=== PATIENT | female | born 1990 | race Caucasian/White ===

== ENCOUNTER 2021-06-10 22:07 | Inpatient (IN) | payer BC ==
[~2021-06-10] VITALS: Ht 162.6 cm; Wt 78.6 kg
[2021-06-10] MEDS ORDERED: LIDOCAINE 1%, 20ML ONE (22:47)
[2021-06-10] MEDS ORDERED: MISOPROSTOL 200 MCG TABLET ONE (22:47)
[2021-06-10] MEDS ORDERED: NEWBORN KIT ONE (22:47)
[2021-06-10] MEDS ORDERED: OXYTOCIN 30U/ 0.9% NaCL 500ML 500 ML ONE (22:47)
[2021-06-10] MEDS ORDERED: FENTANYL PF 100 MCG/2ML IVPush PRN (23:00)
[2021-06-10] MEDS ORDERED: PENICILLIN GK 5,000,000 UNITS in DEXTROSE 5% 100 ML IVPB ONE (23:00)
[2021-06-10] MEDS ORDERED: FENTANYL PF 100 MCG/2ML IV PRN (23:00)
[2021-06-10] MEDS: PENICILLIN GK 2,500,000 UNITS in DEXTROSE 5% 100 ML IVPB SCH (23:00)
[2021-06-10] MEDS ORDERED: ONDANSETRON 2MG/ML, 2ML IVPush PRN (23:00)
[2021-06-10] MEDS ORDERED: TERBUTALINE 1 MG/ML, 1ML SQ PRN (23:00)
[2021-06-10] MEDS ORDERED: OXYTOCIN 30U/ 0.9% NaCL 500ML 500 ML IV ONE (23:00)
[2021-06-10] MEDS ORDERED: TERBUTALINE 1 MG/ML, 1ML IVPush PRN (23:00)
[2021-06-10 23:19] LABS: BASOPHILS % (AUTO) 0 % (0-1); EOSINOPHILS % (AUTO) 1 % (1-7); LYMPHOCYTES % (AUTO) 23 % (22-44); MEAN CORPUSCULAR HEMOGLOBIN 32.4 pg (27.0-34.8); MEAN CORPUSCULAR HGB CONC 34.8 g/dL (32.4-35.8); MEAN PLATELET VOLUME 9.7 fL (7.4-10.4); MONOCYTES % (AUTO) 9 % (2-9); NEUTROPHILS % (AUTO) 68 % (42-75); PLATELET COUNT 152 x10^3/uL (130-400); RED CELL DISTRIBUTION WIDTH 13.1 % (9.6-15.2)
[2021-06-10] MEDS ORDERED: PREN1TAB79 PO (23:26)
[2021-06-10 23:29] VITALS: BP 128/83
[2021-06-11] MEDS ORDERED: OXYTOCIN 30U/ 0.9% NaCL 500ML 500 ML IV PRN (00:30)
[2021-06-11] MEDS: PENICILLIN GK 2,500,000 UNITS in DEXTROSE 5% 100 ML IVPB SCH ×2 (06:11→09:54)
[2021-06-11] MEDS ORDERED: BUPIVACAINE 0.25% ONE (06:26)
[2021-06-11] MEDS ORDERED: FENTANYL/BUPIV./NS/PF 250 ML EPIDCONT ONE (06:26)
[2021-06-11] MEDS ORDERED: NALOXONE 0.4 MG/ML, 1ML IVPush PRN (07:00)
[2021-06-11] MEDS ORDERED: EPHEDRINE 50 MG/ML, 1ML IVPush PRN (07:00)
[2021-06-11] MEDS ORDERED: LACTATED RINGERS 1,000 ML IVBOLUS PRN (07:00)
[2021-06-11] MEDS ORDERED: ONDANSETRON 2MG/ML, 2ML IVPush PRN (07:00)
[2021-06-11] MEDS ORDERED: LACTATED RINGERS 1,000 ML IV SCH (07:00)
[2021-06-11] MEDS ORDERED: DIPHENHYDRAMINE 50 MG/ML, 1ML IVPush PRN (07:00)
[2021-06-11] MEDS ORDERED: FENTANYL/BUPIV./NS/PF 250 ML EPIDCONT SCH (07:00)
[2021-06-11] MEDS ORDERED: BETAMETHASONE 6 MG/ML, 5ML IM ONE (07:30)
[2021-06-11] MEDS ORDERED: DIPH,PERTUSS(ACELL),TET VAC/PF NC IM-VACC ONE (11:42)
[2021-06-11] MEDS ORDERED: SIMETHICONE 80 MG CHEW TAB PO PRN (13:00)
[2021-06-11] MEDS ORDERED: ONDANSETRON 2MG/ML, 2ML IV PRN (13:00)
[2021-06-11] MEDS ORDERED: OXYcodone IR 5MG TABLET PO PRN (13:00)
[2021-06-11] MEDS ORDERED: OXYcodone/APAP 5/325MG TABLET PO PRN (13:00)
[2021-06-11] MEDS ORDERED: ACETAMINOPHEN 325 MG TABLET PO PRN (13:00)
[2021-06-11] MEDS: OXYTOCIN 30U/ 0.9% NaCL 500ML 500 ML IV SCH ×2 (13:00→23:00)
[2021-06-11] MEDS ORDERED: MISOPROSTOL 200 MCG TABLET PR PRN (13:00)
[2021-06-11 15:45] VITALS: BP 125/76
[2021-06-11] MEDS: IBUPROFEN 600 MG TABLET PO PRN (18:02)
[2021-06-11 19:05] VITALS: BP 112/63
[2021-06-11 21:49] LABS: BASOPHILS % (AUTO) 0 % (0-1); EOSINOPHILS % (AUTO) 0 % (1-7); LYMPHOCYTES % (AUTO) 7 % (22-44); MEAN CORPUSCULAR HEMOGLOBIN 32.1 pg (27.0-34.8); MEAN CORPUSCULAR HGB CONC 34.1 g/dL (32.4-35.8); MEAN PLATELET VOLUME 10.2 fL (7.4-10.4); MONOCYTES % (AUTO) 6 % (2-9); NEUTROPHILS % (AUTO) 87 % (42-75); PLATELET COUNT 154 x10^3/uL (130-400); RED BLOOD COUNT 3.97 x10^6/uL (3.82-5.3); RED CELL DISTRIBUTION WIDTH 13.2 % (9.6-15.2)
[2021-06-12 01:30] VITALS: BP 113/76
[2021-06-12 04:30] VITALS: BP 101/60
[2021-06-12] MEDS: IBUPROFEN 600 MG TABLET PO PRN ×2 (05:06→20:01)
[2021-06-12 08:00] VITALS: BP 110/74
[2021-06-12] MEDS: PRENATAL VIT/IRON/FA 1 EACH TABLET PO SCH (08:52)
[2021-06-12] MEDS: DOCUSATE 100 MG CAPSULE PO PRN ×2 (08:52→20:00)
[2021-06-12] MEDS: OXYTOCIN 30U/ 0.9% NaCL 500ML 500 ML IV SCH ×2 (09:00→19:00)
[2021-06-12 20:00] VITALS: BP 118/84
[2021-06-13] MEDS: OXYTOCIN 30U/ 0.9% NaCL 500ML 500 ML IV SCH (05:00)
[2021-06-13 07:25] VITALS: BP 116/81
[2021-06-13] MEDS ORDERED: IBUP-1222 PO (08:26)
[2021-06-13] MEDS: PRENATAL VIT/IRON/FA 1 EACH TABLET PO SCH (09:00)
[2021-06-13] MEDS ORDERED: DIPH,PERTUSS(ACELL),TET VAC/PF NC IM-VACC ONE (10:00)
== END 2021-06-13 11:00 | disposition home or self-care (01) | DRG 807 ==
LOC: LDOP 22:07 → LDIP 22:39 → 2NW 06-11 15:22
PROVIDERS: ADMIT Obstetrics & Gynecology; ATTEND Obstetrics & Gynecology
PROC: 10E0XZZ Delivery of Products of Conception, External Approach (ICD-10-PCS; principal; 2021-06-11)
PROC: 0W8NXZZ Division of Female Perineum, External Approach (ICD-10-PCS; 2021-06-11)
PROC: 3E0234Z Introduction of Serum, Toxoid and Vaccine into Muscle, Percutaneous Approach (ICD-10-PCS; 2021-06-13)
DX: O42.913 Preterm premature rupture of membranes, unspecified as to length of time between rupture and onset of labor, third trimester (principal); Z37.0 Single live birth; Z3A.36 36 weeks gestation of pregnancy; O26.893 Other specified pregnancy related conditions, third trimester; Z67.41 Type O blood, Rh negative; O70.1 Second degree perineal laceration during delivery; Z23 Encounter for immunization
CPT/HCPCS: 36415; 85025; 86592; 86850; 86900; 87635; 90715; G0378; J0702; J2540; J2590; J7120